=== PATIENT | male | born 2005 ===

== ENCOUNTER 2024-05-08 20:00 | Emergency (ER) | payer BC ==
[2024-05-08] MEDS: Diphtheria,Pertussis(Acell),Tetanus Vaccine 0.5 ML Syringe IM ONE (20:34)
[2024-05-08] MEDS: Bacitracin Oint 1 GM U/D Packet TOP ONE (21:19)
== END 2024-05-08 21:26 | disposition home or self-care (01) ==
LOC: MW.ED 20:00
DX: T23.262A Burn of second degree of back of left hand, initial encounter (principal); Z23 Encounter for immunization; X15.8XXA Contact with other hot household appliances, initial encounter
CPT/HCPCS: 90471; 90715; 99283; 99283-25